=== PATIENT | female | born 1990 | race Caucasian/White ===

== ENCOUNTER 2017-12-21 19:42 | Observation (INO) | payer OTHER ==
[~2017-12-21] VITALS: Ht 160 cm; Wt 55.3 kg
[2017-12-21] MEDS ORDERED: IBUPROFEN 600 MG TAB PO STA (20:16)
[2017-12-21] MEDS ORDERED: IBUPROFEN 200 MG TAB ONE (20:24)
[2017-12-21] MEDS ORDERED: IBUPROFEN 600 MG TAB ONE (20:24)
[2017-12-21] MEDS ORDERED: CEFTRIAXONE SOD 1 GM VIAL IM ONE (20:30)
[2017-12-21] MEDS ORDERED: SODIUM CHLORIDE 0.9% 1000ML 1,000 ML IV SCH ×2 (20:30)
[2017-12-21 20:39] LABS: CLARITY,URINE CLOUDY (CLEAR); COLOR,URINE YELLOW (YELLOW); LEUKOCYTE ESTERASE ,URINE 1+ (NEGATIVE); NITRITE,URINE NEGATIVE (NEGATIVE)
[2017-12-21 20:40] LABS: BILIRUBIN,URINE NEGATIVE (NEGATIVE); KETONES,URINE NEGATIVE (NEGATIVE); PROTEIN,URINE DIPSTICK 2+ (NEGATIVE); URINE UROBILINOGEN 1 mg/dL (0.2 - 1)
[2017-12-21 20:41] LABS: BASOPHILS % 0.2 % (0.0-1.0); EOSINOPHILS % 0.1 % (0.0-6.0); HEMATOCRIT 31.2 % (34.2-44.1); HEMOGLOBIN 9.8 g/dL (12.0-16.0); LYMPHOCYTES # (AUTO) 1.6 (1.0-3.2); LYMPHOCYTES % 16.6 % (18.0-39.1); MEAN CORPUSCULAR HEMOGLOBIN 26.6 pg (28-32); MEAN CORPUSCULAR HGB CONC 31.4 g/dL (31-35); MEAN CORPUSCULAR VOLUME 84.8 fL (81-99); MONOCYTES # (AUTO) 1.1 (0.2-0.8); MONOCYTES % 11.3 % (4.4-11.3); NEUTROPHILS # (AUTO) 6.7 (2.1-6.9); NEUTROPHILS % 71.4 % (38.7-80.0); PLATELET COUNT 224 x10e3/uL (140-360); RED BLOOD COUNT 3.68 x10e6/uL (3.6-5.1); RED CELL DISTRIBUTION WIDTH 16.6 % (11.7-14.4)
[2017-12-21 20:48] LABS: RBC,URINE 21-50 /HPF (0-5)
[2017-12-21 20:54] LABS: ANION GAP 12.1 mmol/L (8-16); BLOOD UREA NITROGEN 8 mg/dL (7-26); BUN/CREATININE RATIO 11 (6-25); CALCIUM 9.7 mg/dL (8.4-10.2); CARBON DIOXIDE 26 mmol/L (22-29); CHLORIDE 105 mmol/L (98-107); CREATININE, SERUM 0.74 mg/dL (0.57-1.11); EST GLOMERULAR FILTRATION RATE > 60 ML/MIN (60-); GLUCOSE 103 mg/dL (74-118); POTASSIUM 4.1 mmol/L (3.5-5.1); SODIUM 139 mmol/L (136-145)
[2017-12-21 20:55] LABS: ALANINE AMINOTRANSFERASE < 6 IU/L (0-55); ALBUMIN/GLOBULIN RATIO 0.7 (0.8-2.0); ALKALINE PHOSPHATASE 57 IU/L (40-150)
[2017-12-21 21:01] LABS: HCG,QUANTITATIVE < 1.20 mIU/mL (0-10)
--- NOTE | 2017-12-21 21:48 | Diagnostic Imaging Report ---
EXAM: CT ABDOMEN AND PELVIS without IV CONTRAST INDICATION: Left flank pain COMPARISON: None TECHNIQUE: The abdomen and pelvis were scanned using a multidetector helical scanner. Coronal and sagittal reformations were obtained. Renal stone protocol performed. IV Contrast: None Oral Contrast: None CTDIvol has been reviewed. It is below the limits set by the Radiation Protocol Committee (RPC). FINDINGS: LOWER THORAX: No consolidations LIVER: No masses BILIARY: Normal gallbladder. No ductal dilation. SPLEEN: No masses PANCREAS: No masses ADRENALS: No nodules RIGHT KIDNEY: No nephroureterolithiasis or hydronephrosis. LEFT KIDNEY: No nephroureterolithiasis or hydronephrosis. GI TRACT: No wall thickening or obstruction. Normal appendix. VESSELS: Normal PERITONEUM/RETROPERITONEUM: Trace free pelvic fluid consistent with physiologic fluid. LYMPH NODES: No lymphadenopathy REPRODUCTIVE ORGANS: Normal BLADDER: Normal SOFT TISSUES: Normal BONES: No suspicious bone lesions. IMPRESSION: Normal CT of the abdomen and pelvis. No nephroureterolithiasis or hydronephrosis. Signed by: Dr. Елена Elias M.D. on 12/21/2017 9:44 PM
--- NOTE | 2017-12-21 21:49 | Diagnostic Imaging Report ---
EXAM: CHEST 2 VIEWS, PA and lateral INDICATION: Left-sided pain COMPARISON: None FINDINGS: LINES/TUBES: None LUNGS: No consolidations or edema. PLEURA: No effusions or pneumothorax. HEART AND MEDIASTINUM: Normal size and contour. BONES AND SOFT TISSUES: No acute findings. IMPRESSION: No acute thoracic abnormality. Signed by: Dr. Елена Elias M.D. on 12/21/2017 9:46 PM
[2017-12-22] MEDS ORDERED: no home meds (01:24)
[2017-12-22] MEDS ORDERED: PROMETHAZINE HCL (IM) 25 MG/ML VIAL IV STA (01:26)
[2017-12-22] MEDS ORDERED: MORPHINE SULFATE 4 MG/ML SYR IV STA (01:26)
[2017-12-22] MEDS ORDERED: MORPHINE SULFATE 2 MG/ML SYR ONE (01:36)
[2017-12-22] MEDS: SODIUM CHLORIDE 0.9% 1000ML 1,000 ML IV SCH ×4 (01:40→22:10)
--- OUTSIDE RECORDS SUMMARY | 2017-12-22 01:42 | XMS REPORT ---
Author [facility] Address Unknown Phone Unavailable Care Team Providers Care Snipper Name Role Phone JADE SHAW Unavailable Unavailable Problems This patient has no known problems. Allergies, Adverse Reactions, Alerts This patient has no known allergies or adverse reactions. Medications This patient has no known medications. Results Test Description Test Time Test Comments Text Results Atomic Results Result Comments CHEST 2 VIEWS [place] [address] Patient Name: ILANA LOPEZ MR #: [id number] : 1990 Age/Sex: 27/F Req #: [id number] Adm Physician: Ordered by: NOAH RICO ORE TRIMMER Report #: [id number] Location: ER Room/Bed: Procedure: [id number] DX/CHEST 2 VIEWS Exam Date: 12/21/17 Exam Time: 2132 REPORT STATUS: Signed EXAM: CHEST 2 VIEWS, PA and lateral INDICATION: Left-sided pain COMPARISON: None FINDINGS: LINES/TUBES: None LUNGS: No consolidations or edema. PLEURA: No effusions or pneumothorax. HEART AND MEDIASTINUM: Normal size and contour. BONES AND SOFT TISSUES: No acute findings. IMPRESSION: No acute thoracic abnormality. Signed by: Dr. Amador Elias M.D. on 12/21/2017 9:46 PM Dictated By: AMADOR ELIAS MD 45 Transcribed By: SHASHA on 12/21/172145 COPY TO: NOAH RICO ORE TRIMMER CT ABDOMEN/PELVIS WO [place] [address] Patient Name: ILANA LOPEZ MR #: [id number] : 1990 Age/Sex: 27/F Req #: [id number] Adm Physician: Ordered by: NOAH RICO NP Report #: [id number] Location: ER Room/Bed: Procedure: [id number] CT/CT ABDOMEN/PELVIS WO Exam Date: 12/21/17 Exam Time: 2119 REPORT STATUS: Signed EXAM: CT ABDOMEN AND PELVIS without IV CONTRAST INDICATION: Left flank pain COMPARISON: None TECHNIQUE: The abdomen and pelvis were scanned using a multidetector helical scanner. Coronal and sagittal reformations were obtained. Renal stone protocol performed. IV Contrast: None Oral Contrast: None CTDIvol has been reviewed. It is below the limits set by the Radiation Protocol Committee (RPC). FINDINGS: LOWER THORAX: No consolidations LIVER: No masses BILIARY: Normal gallbladder. No ductal dilation. SPLEEN: No masses PANCREAS: No masses ADRENALS: No nodules RIGHT KIDNEY: No nephroureterolithiasis or hydronephrosis. LEFT KIDNEY: No nephroureterolithiasis or hydronephrosis. GI TRACT: No wall thickening or obstruction. Normal appendix. VESSELS: Normal PERITONEUM/ RETROPERITONEUM: Trace free pelvic fluid consistent with physiologic fluid. LYMPH NODES: No lymphadenopathy REPRODUCTIVE ORGANS: Normal BLADDER: Normal SOFT TISSUES: Normal BONES: No suspicious bone lesions. IMPRESSION: Normal CT of the abdomen and pelvis. No nephroureterolithiasis or hydronephrosis. Signed by: Dr. Amador Elias M.D. on 12/21/2017 9:44 PM Dictated By: AMADOR ELIAS MD 43 Transcribed By: SHASHA on 2143 COPY TO: NOAH RICO NP
[2017-12-22] MEDS ORDERED: LEVOFLOXACIN 500MG/D5W 100ML IV SCH (01:45)
[2017-12-22] MEDS ORDERED: PROMETHAZINE 12.5MG/ NACL 0.9% 12.5 MG/50 ML BAG IV PRN (03:30)
[2017-12-22] MEDS ORDERED: MORPHINE SULFATE 4 MG/ML SYR IV PRN (03:30)
[2017-12-22] MEDS ORDERED: ACETAMINOPHEN 325 MG TAB PO PRN (03:30)
[2017-12-22] MEDS: PIPER-TAZ 3.375 GM 3.375 GM/100 ML BAG IV SCH ×3 (05:03→22:10)
[2017-12-22 07:45] VITALS: BP 119/68
[2017-12-22 11:04] VITALS: BP 89/49
[2017-12-22 12:40] VITALS: BP 94/53
--- NOTE | 2017-12-22 15:33 | History and Physical ---
CHIEF COMPLAINT: Left-sided flank pain. HISTORY OF PRESENT ILLNESS: Ms. De Santiago is a 27-year-old female with no known medical problems, presented to the emergency room with severe left-sided flank pain for 1 week, progressively getting worse. In the emergency room, she was given IV fluids and IV pain medication, and patient's pain has been much better. A urinalysis showed evidence of 11-20 WBCs, and urine culture is growing gram-negative bacillus. She is denying any complaints of flank pain now, and she is feeling much better. REVIEW OF SYSTEMS GENERAL: Denies any fever or chills. HEAD: Denies any head trauma. ENT: Denies any earache. CVS: Denies any chest pain. PHYSICAL EXAMINATION VITAL SIGNS: She had fever of 101.4 yesterday and has been afebrile. HEENT: Head atraumatic, normocephalic. Pupils are reactive. NECK: Supple. CHEST: Clear to auscultation bilaterally. EXTREMITIES: No clubbing, cyanosis or edema. NEUROLOGICALLY: Awake and alert. ABDOMEN: __No left CVA tenderness. LABS: UA showing 11-20 WBCs. Chemistry is within normal limits. White count of 9.3, hemoglobin 9.8. Urine culture is showing gram-negative bacillus, more than 100,000 colonies. ASSESSMENT: Ms. De Santiago is a 27-year-old female, presented with left flank pain, found to have urinary tract infection. PLAN: Continue the patient on IV Zosyn for now. Urine culture is pending. Possibly 1 more day in the hospital and hopefully be able to discharge her tomorrow. I will discuss this with the patient. Job#: [id number] EV
[2017-12-22 15:41] VITALS: BP 103/65
[2017-12-22 20:00] VITALS: BP 119/73
[2017-12-22 23:45] VITALS: BP 114/69
[2017-12-23 00:05] VITALS: BP 114/69
[2017-12-23] MEDS: PIPER-TAZ 3.375 GM 3.375 GM/100 ML BAG IV SCH (05:54)
[2017-12-23 05:55] VITALS: BP 104/59
[2017-12-23 05:56] VITALS: BP 104/59
[2017-12-23] MEDS: SODIUM CHLORIDE 0.9% 1000ML 1,000 ML IV SCH (06:45)
[2017-12-23 06:52] LABS: BASOPHILS % 0.4 % (0.0-1.0); EOSINOPHILS # (AUTO) 0.2 (0.0-0.4); EOSINOPHILS % 3.3 % (0.0-6.0); HEMATOCRIT 25.3 % (34.2-44.1); HEMOGLOBIN 7.9 g/dL (12.0-16.0); LYMPHOCYTES # (AUTO) 1.7 (1.0-3.2); LYMPHOCYTES % 36.3 % (18.0-39.1); MEAN CORPUSCULAR HGB CONC 31.2 g/dL (31-35); MEAN CORPUSCULAR VOLUME 86.3 fL (81-99); MONOCYTES # (AUTO) 0.4 (0.2-0.8); MONOCYTES % 9.4 % (4.4-11.3); NEUTROPHILS # (AUTO) 2.3 (2.1-6.9); NEUTROPHILS % 50.4 % (38.7-80.0); PLATELET COUNT 197 x10e3/uL (140-360); RED BLOOD COUNT 2.93 x10e6/uL (3.6-5.1); RED CELL DISTRIBUTION WIDTH 16.5 % (11.7-14.4)
[2017-12-23 07:15] LABS: ALANINE AMINOTRANSFERASE 8 IU/L (0-55); ALBUMIN 2.5 g/dL (3.5-5.0); ALBUMIN/GLOBULIN RATIO 0.8 (0.8-2.0); ALKALINE PHOSPHATASE 49 IU/L (40-150); ANION GAP 10.8 mmol/L (8-16); BLOOD UREA NITROGEN 9 mg/dL (7-26); BUN/CREATININE RATIO 16 (6-25); CALCIUM 8.4 mg/dL (8.4-10.2); CARBON DIOXIDE 23 mmol/L (22-29); CHLORIDE 111 mmol/L (98-107); CREATININE, SERUM 0.57 mg/dL (0.57-1.11); EST GLOMERULAR FILTRATION RATE > 60 ML/MIN (60-); GLUCOSE 103 mg/dL (74-118); POTASSIUM 3.8 mmol/L (3.5-5.1); SODIUM 141 mmol/L (136-145)
[2017-12-23 07:47] VITALS: BP 98/50
[2017-12-23 08:59] LABS: BAND NEUTROPHILS % (MANUAL) 1 %; EOSINOPHILS % (MANUAL) 5 % (0-7); LYMPHOCYTES % (MANUAL) 39 % (19-48); METAMYELOCYTES % (MANUAL) 1 % (0-0); MONOCYTES % (MANUAL) 6 % (3.4-9.0); NEUTROPHILS % (MANUAL) 47 % (40-74)
[2017-12-23 09:00] LABS: ANISOCYTOSIS SLIGHT; ELLIPTOCYTE, RBC SLIGHT; HYPOCHROMASIA MODERATE; POIKILOCYTOSIS SLIGHT
[2017-12-23 09:01] LABS: PLATELET ESTIMATE ADEQUATE; PLATELET MORPHOLOGY COMMENT FEW LARGE; RBC MORPHOLOGY COMMENT NORMAL
--- NOTE | 2017-12-23 15:19 | Discharge Summary ---
FINAL DIAGNOSES 1. Urinary tract infection. 2. Mild anemia. 3. Left flank pain. ADMISSION HISTORY AND HOSPITAL COURSE: Ms. De Santiago is a 27-year-old female. She presented with abdominal pain. UA showed pyuria. Urine culture is growing E. coli. Abdominal pain is better. E. coli is pansensitive. She will be discharged home on p.o. antibiotics. She will follow up with her primary care physician in 2-3 weeks. JACK BAEZ MD Job#: [id number] [place]
== END 2017-12-23 10:58 | disposition home or self-care (01) ==
LOC: ER 19:42 → ERHOLD 12-22 01:22 → IMCU 12-22 03:22
PROVIDERS: ADMIT Internal Medicine; ATTEND Internal Medicine
DX: N10 Acute pyelonephritis (principal); D64.9 Anemia, unspecified; B96.20 Unspecified Escherichia coli [E. coli] as the cause of diseases classified elsewhere
CPT/HCPCS: 36415 ×2; 71046; 74176; 80053 ×2; 81001; 83605; 84702; 85025 ×2; 87040; 87086; 87186; 96374; 99284; G0378 ×2; J0696; J2270; J2543 ×2; J2550; J7030 ×3

== ENCOUNTER 2019-11-01 16:34 | Emergency (ER) | payer OTHER ==
[~2019-11-01] VITALS: Ht 160 cm; Wt 54.4 kg
[~2019-11-01 16:34] MED LIST: no home meds
[2019-11-01 20:40] VITALS: BP 129/60
== END 2019-11-01 20:43 | disposition home or self-care (01) ==
LOC: ER 16:34
DX: L40.0 Psoriasis vulgaris (principal); L73.9 Follicular disorder, unspecified; G56.03 Carpal tunnel syndrome, bilateral upper limbs
CPT/HCPCS: 99282

== ENCOUNTER 2022-01-23 16:12 | Emergency (ER) | payer OTHER ==
[~2022-01-23] VITALS: Ht 160 cm; Wt 54.4 kg
[2022-01-23] MEDS ORDERED: ELIMITE60 GM TOP (17:01)
== END 2022-01-23 17:08 | disposition home or self-care (01) ==
LOC: ER 16:24
DX: B86 Scabies (principal)
CPT/HCPCS: 99283

== ENCOUNTER 2022-02-02 23:10 | Emergency (ER) | payer OTHER ==
[~2022-02-02] VITALS: Ht 160 cm; Wt 54.4 kg
[~2022-02-02 23:10] MED LIST changes: +ELIMITE60 GM TOP
[2022-02-02] MEDS ORDERED: ELIMITE60 GM TOP (23:47)
== END 2022-02-03 00:21 | disposition home or self-care (01) ==
LOC: ER 23:30
DX: B86 Scabies (principal)
CPT/HCPCS: 99282